=== PATIENT | female | born 1980 | race African-American/Black ===

== ENCOUNTER 2018-06-13 00:38 | Emergency (ER) | payer MEDICARE, MEDICAID ==
[~2018-06-13] VITALS: Ht 162.6 cm; Wt 50.0 kg
[2018-06-13 05:29] VITALS: BP 118/72
== END 2018-06-13 05:36 | disposition home or self-care (01) ==
LOC: ER 00:38
DX: F41.9 Anxiety disorder, unspecified (principal); G40.909 Epilepsy, unspecified, not intractable, without status epilepticus
CPT/HCPCS: 99284

== ENCOUNTER 2021-04-18 04:04 | Emergency (ER) | payer MEDICARE, MEDICAID ==
[~2021-04-18] VITALS: Ht 157.5 cm; Wt 61.0 kg
[2021-04-18] MEDS ORDERED: KETOROLAC 30MG/ML VIAL IM STA (04:31)
[2021-04-18] MEDS ORDERED: HYDROCODONE/ACETAMINOPHEN 5/325MG TABLET PO ONE (04:45)
[2021-04-18] MEDS ORDERED: T3 PO (05:29)
[2021-04-18] MEDS ORDERED: NAPR-681 PO (05:29)
[2021-04-18 05:44] VITALS: BP 128/86
== END 2021-04-18 05:54 | disposition home or self-care (01) ==
LOC: ER 04:04
DX: M54.42 Lumbago with sciatica, left side (principal); Z86.59 Personal history of other mental and behavioral disorders; Z98.890 Other specified postprocedural states
CPT/HCPCS: 81025; 96372; 99283; J1885